=== PATIENT | male | born 1950 | race Caucasian/White ===

== ENCOUNTER → 2020-02-18 08:47 | Outpatient (CLI) | payer OTHER, SELFPAY ==
[2020-02-19 06:18] LABS: COVID19 Sendout Not Detected (Not Detect)
== END ==
PROVIDERS: PCP Physician Assistant Medical; Visit Provider Physician Assistant
DX: Z01.818 Encounter for other preprocedural examination (principal)
CPT/HCPCS: 87635

== ENCOUNTER 2020-02-21 13:25 | Observation (INO) | payer OTHER, SELFPAY ==
[2020-02-19 09:52] VITALS: BMI 28.1
[2020-02-20] VITALS (18 sets, daily range): BP systolic 70–156; BP diastolic 38–97; PULSE 67–88; RESP 8–91; TEMP 35.8–37.1; O2SAT 10–99; BMI 26.9
--- NOTE | 2020-02-20 | DI.RAD.S_ITS ---
PROCEDURE: XR LUMBAR SPINE 1V INDICATIONS: LAMINECTOMY TECHNIQUE: Single lateral view of the lumbar spine was acquired. COMPARISON: [facility], MR, MR LUMBAR SPINE WITHOUT CONTRAST, 03/12/2019, 9:37. FINDINGS: Bones: Intraoperative lateral view, showing metallic probe overlying the posterior elements at L3-L4 with upper tip of the probe parallel in position to the L3-4 disc space. Soft tissues: Overlying bowel gas pattern is normal. No suspicious soft tissue calcifications. IMPRESSION: Successful dorsal L3-4 disc level localization. Dictated by: Thiago Ramirez M.D. on 02/20/2020 at 12:52 Approved by: Thiago Ramirez M.D. on 02/20/2020 at 12:53
--- NOTE | 2020-02-20 07:21 | PM.PREOP ---
Pre-operative Note COVID-19 COVID-19 status: Negative Result date/Date tested (Pos, Neg/Pending): 02/18/20 Interval Note History & Physical reviewed/Exam performed by Physician: Yes Changes to H&P: No
[2020-02-20] MEDS: LACTATED RINGERS 1,000 ML 42 ML IV ×3 (07:30→10:07)
[2020-02-20] MEDS: CEFAZOLIN 2 GM/100 ML FROZ.PIGGY IV ×3 (07:48→23:33)
--- NOTE | 2020-02-20 08:24 | SUR.OPER ---
Prone on spine table, head in foam head support, padded chest and pelvic supports, gel pad at knees, lower legs supported by pillows; nipples, genitalia and toes free of pressure, arms secured on foam padded arm boards at <90 degrees abduction. Tape over blanket at thigh secured to table.
[2020-02-20] MEDS: THROMBIN (RECOMBINANT) 5,000 UNIT VIAL 5000 UNIT TOP (08:30)
[2020-02-20] MEDS: ACETAMINOPHEN IV 1,000 MG/100 ML VIAL 400 MG IV (08:30)
[2020-02-20] MEDS: VANCOMYCIN 1,000 MG VIAL 1000 MG TOP (08:31)
[2020-02-20] MEDS: SODIUM CHLORIDE 0.9% 1,000 ML, GENTAMICIN 80 MG IRR (08:32)
[2020-02-20] MEDS: BUPIVACAINE 0.25% (PF) 8 ML, fentaNYL 100 MCG INJ (08:32)
--- NOTE | 2020-02-20 08:34 | SUR.OPER ---
No flow in central air; start in OR room was delayed.
--- NOTE | 2020-02-20 09:40 | P.OP_ITS ---
Operative Date/Time/Diagnoses Date of procedure: 02/20/20 Time of procedure: 09:40 Pre-op diagnosis: Lumbar stenosis with radiculopathy Post-op diagnosis: same Procedure & Clinicians Procedure: L2-3, L3-4, L4-5 laminectomies Use of microscope Placement of epidural catheter Same procedure as scheduled: Yes Indications: [age] year old male with intractable pain from stenosis. They had failed conservative management and requested operative intervention. Risks and benefits of surgery were discussed and appropriate consents were obtained. Surgeon: Ryder Velázquez [employer] Furnace Operator: Bebeto Stein Anesthesia Type: General Operative Notes Findings: None Closure Type: primary Specimen(s): none sent Applied: catheter Estimated Blood Loss (mL): 30 Procedure in detail: Patient was brought to the operating room and intubated on the table. They were rolled over on the well-padded prone position on the Wilner table. A time-out was performed. Preoperative antibiotics were given. The back was prepped and draped in standard sterile fashion. Using fluoroscopy for localization, a 10 cm incision was made in the midline. We used Bovie to dissect through the lumbodorsal fascia and then subperiosteally dissect the paraspinal muscles off the right side. A marker was placed and x-ray was taken to confirm positioning. We then brought in the microscope. A right-sided laminectomy was performed at L4-5, then L3-4, then L2-3. We carefully depressed the dura and reached across the midline to decompress the opposite side. The neural foramen were cleared out. At the end, we could reach with the ball probe cephalad and caudally across the midline and to the foramen and everything was opened. The wound was irrigated. An epidural catheter was prepared with 8 mL of 0.25% Marcaine and 100 mcg of fentanyl. The dura was carefully depressed and the catheter was advanced 6 cm cephalad underneath remaining lamina without resistance. The fascia was then closed in layers. The epidural catheter was injected without complications. Vancomycin powder was placed in the wound. The superficial and the skin were closed. Sterile dressing was placed. Patient was rolled over extubated brought to recovery room with no complications. Complications: none Post-operative Condition: stable Disposition: PACU Plan for aftercare: Overnight admission probable discharge home tomorrow.
--- NOTE | 2020-02-20 10:32 | SUR.PHASEI ---
report called to Cynthia
--- NOTE | 2020-02-20 10:48 | SUR.PHASEI ---
Patient transferred to the floor with belongings bag, black bag, cane and glasses. Report given to Mary. IV saline locked. VS stable. Back dressing checked with RN. Patient moving all extremities independently.
[2020-02-20] MEDS: LACTATED RINGERS 1,000 ML 125 ML IV ×2 (11:38→20:02)
--- NOTE | 2020-02-20 12:52 | PC.NURSE ---
Patient, alert, oriented, denies pain, CMS+ to BLE. Tang patent, dressing to back intact. Patient tolerated lunch without nausea.
[2020-02-20] MEDS: HYDROCODONE/ACET 5/325 TABLET 2 TAB PO ×3 (13:08→22:57)
--- NOTE | 2020-02-20 14:52 | PT.IIE ---
Current Diagnoses Spinal stenosis, lumbar region with neurogenic claudication (02/20/20) Other intervertebral disc degeneration, lumbar region (02/20/20) Surgery Performed Operation Date: 02/20/20 07:45 Actual Procedures p L2-5 laminectomies - Ryder Velázquez MD Physical Therapy Inpatient Evaluation/Re-Eval M1 PT/OT-IP Prior Functional Status Start: 02/20/20 13:27 Freq: NEEDED Status: Active Protocol: Document 02/20/20 14:31 AW (Rec: 02/20/20 14:51 AW [email or web address]) Medical Review Prior Functional Status Medical History Reviewed Yes Communication WNL Mobility and Gait Pt is modified independent with use of SPC for ~2 years. He reports the cane helps with his balance. Activities of Daily Living and IADL's Independent Prior Functional Level (Other details) Pt reports one non-injurious fall in the past year. Social History Household Members none Living Arrangements House Number of Stairs To Enter/Railing? Pt will stay with his sister at discharge. Her home has level entrance to landing level. Pt must climb 7 stairs with left rail ascending to the main level including the kitchen and living room. From the landing, he must descend 7 stairs with no railing to the bedroom where he will be staying. Details below refer to sister' s home. Home Environment Standard Height Toilet,Walk in Shower Home Equipment Front Wheel Walker,Straight Cane,Grab Bars In Shower Employment Status Retired Additional Social History Comment Pt lives alone but plans to stay with his sister for several days at discharge. She and her will be able to assist as needed. He also has supportive friends to assist when he does return home. M2 PT-IP Current Condition Start: 02/20/20 13:27 Freq: NEEDED Status: Active Protocol: Document 02/20/20 14:31 AW (Rec: 02/20/20 14:51 AW [email or web address]) Physical Therapy Current Condition Current Condition Evaluation Date 02/20/20 Treatment Diagnosis s/p L2-3 L3-4 L4-5 laminectomies; difficulty in walking Onset Date 02/20/20 Precautions Lumbar Precautions Log Roll,No Twisting,Limit Bending,Lifting Restriction of 10 lbs,Gait Belt above Incisional Area Weight Bearing Status Weight Bearing Status Full Weight Bearing M3 PT-IP Subjective Start: 02/20/20 13:27 Freq: NEEDED Status: Active Protocol: Document 02/20/20 14:31 AW (Rec: 02/20/20 14:51 AW [email or web address]) Subjective Physical Therapy Visit Type Type Initial Evaluation Visit Start Time 13:52 Visit Stop Time 14:17 Total Visit Minutes 25 Physical Therapy Visit Comments Patient Comments Pt is alert and willing to participate with PT Patient Goals To discharge to his sister's house Therapy Pain Assessment Pain When Pain Assessed During Mobility Pain Present Pain Present Pain Reported Location lower back Intensity 5 Scale Used 3/10 at rest; 5/10 during bed mobility Pain Management Techniques Timing of Activity with Medications M4 PT-IP Mobility and Gait Start: 02/20/20 13:27 Freq: NEEDED Status: Active Protocol: Document 02/20/20 14:31 AW (Rec: 02/20/20 14:51 AW [email or web address]) PT-Bed Mobility Assessment Rolling Type of Rolling Log Rolling,Roll to Right Level of Assist Contact Guard Assistance,1 Person Assistance Supine to Sit Supine to Sit Minimal Assistance,1 Person Assistance Scooting Scooting to Edge of Bed Standby Assistance PT-Transfer Assessment Sit to and From Stand Sit to and from Stand Contact Guard Assistance,1 Person Assistance,Use of Upper Extremities Equipment Transfer Assistive Device Gait Belt,Front Wheeled Walker Orthotic/Prosthetic Devices or Brace: No Transfers Transfer Destination Chair Transfer Technique Stand Step Pivot Transfer Ability Level of Assist Contact Guard Assistance,1 Person Assistance,Use of Upper Extremities Comments Mobility Comments Pt sitting up in bed upon PT arrival. From flattened bed, he completed log roll to his right side CGA and sidelying to sit transition min A x 1. He was able to sit EOB with and without UE support. BP sitting was 132/76. He stood using FWW CGA and reported dizziness. He was able to shift weight and march in place. Pt step pivot transferred to the chair using FWW CGA. BP after transfer was 152/88. Pt was positioned in the chair with call light and all needs within reach. Pt verbalized agreement to use call light for all mobility needs. Gait Assessment Gait Gait Assistance Required: Contact Guard Assist Distance (Feet) 4 Assistive Devices Assistive Device Gait Belt,Front Wheeled Walker Gait Deviations General Gait Pattern Antalgic,Decreased Stride Length,Decreased Feet Clearance,Flexed Trunk Factors Limiting Gait Function Factors Limiting Gait Function Decreased Activity Tolerance, Decreased Strength,Pain,Poor Balance Comments Gait Comments See mobility comments Stair Climbing Assessment Comments Stair Climbing Comments Not assessed. PT-Balance Assessment Sitting Balance and Reactions Static Sitting Balance Ability Good Dynamic Sitting Balance Ability Good Standing Balance and Reactions Static Standing Balance Ability Good Dynamic Standing Balance Ability Good Device Used FWW M5 PT-IP Objective Assessments Start: 02/20/20 13:27 Freq: NEEDED Status: Active Protocol: Document 02/20/20 14:31 AW (Rec: 02/20/20 14:51 AW [email or web address]) Orientation Orientation/Cognition Level of Alertness Alert Orientation Name,Day of Week,Place, Situation Language Function Ability No Deficits Noted Safety Awareness Understands Safety Issues Memory Description No Deficits Noted Gross Range of Motion Lower Extremity ROM Assessment Within Functional Limits Strength Lower Extremity Strength Assessment Bilaterally Impaired Comments Strength Comments Grossly 4/5 except B knees 4-/ 5 Coordination Assessment Gross Coordination Gross Coordination WNL Sensation Assessment Sensation Gross Sensation Right LE Impaired,Left LE Impaired Comments Sensation Comments Pt reports chronic paresthesias of anterolateral thighs and medial shins. On evaluation, pt noted numbess in toes bilaterally. Muscle Tone Muscle Tone WNL Yes M6 PT-IP Treatment Start: 02/20/20 13:27 Freq: NEEDED Status: Active Protocol: Document 02/20/20 14:31 AW (Rec: 02/20/20 14:51 AW [email or web address]) Physical Therapy Treatment Education Education Provided Precautions,Weight Bearing Status,Post-Op Packet,Safety Other Treatments Other Treatment Performed Provided education on role of PT, plan of care, post-op precautions, and selection of appropriate assistive device M7 PT-IP Assessment and Plan Start: 02/20/20 13:27 Freq: NEEDED Status: Active Protocol: Document 02/20/20 14:31 AW (Rec: 02/20/20 14:51 AW [email or web address]) PT Summary Assessment and Plan Potential Rehabilitation Potential Good Status of Condition at Evaluation Evolving Summary Impairments Pain,Strength,Balance, Sensation,Bed Mobility, Transfers,Gait,Activity Tolerance Assessment Summary Law is a 69yo man seen for PT evaluation on POD0 following L2-3 L3-4 L4-5 laminectomies. At baseline, he is mod indpendent with use of SPC and fully independent with ADL's. On evaluation, pt reported dizziness with mobilty although SBP kelly from 132-152 . Pt required CGA to min assist with bed mobility and CGA for transfer. PT anticipates he will progress through plan of care and be safe to discharge to his sister's home with assist from her and her once medically cleared. Pt will need to clear stairs prior to discharge. Goals Bed Mobility Goal Independent Transfer Goal Standby Assistance,Cane Gait Goal Standby Assistance,Cane Gait Distance 200 Other Goals - up/down 7 stairs with L rail ascending SBA - up/down 7 stairs with SPC SBA Days to Meet Goals 2 Frequency of Treatment Frequency Of Treatment Twice a Day Treatment Plan Physical Therapy Treatment Plan Bed Mobility Training,Transfer Training,Gait Training, Therapeutic Exercise,Balance Retraining,Post Op Education, Discharge Planning,Hot or Cold Pack Other Recommendations and Next Treatment bed mobility; progress gait Focus distance; assess safety on stairs; sister available for CGT? Recommendations To Nursing Amount of Assist Needed 1 Person Assist Discharge Recommendations PT Discharge Recommendations Home with Assistance, Outpatient PT Transportation Needs at Discharge Private Vehicle
--- NOTE | 2020-02-20 15:30 | OT.IP.EVAL ---
Current Diagnoses Spinal stenosis, lumbar region with neurogenic claudication (02/20/20) Other intervertebral disc degeneration, lumbar region (02/20/20) Surgery Performed Operation Date: 02/20/20 07:45 Actual Procedures p L2-5 laminectomies - Ryder Velázquez MD Occupational Therapy Inpatient Evaluation/Re-Eval M1 PT/OT-IP Prior Functional Status Start: 02/20/20 16:09 Freq: NEEDED Status: Active Protocol: Document 02/20/20 16:09 [facility] (Rec: 02/20/20 16:28 [facility] [id number]) Medical Review Prior Functional Status Medical History Reviewed Yes Communication WNL Mobility and Gait Pt is modified independent with use of SPC for ~2 years. He reports the cane helps with his balance. Activities of Daily Living and IADL's Independent Prior Functional Level (Other details) Pt reports one non-injurious fall in the past year. Social History Household Members none Living Arrangements House Number of Floors (Floors) One Floor Number of Stairs To Enter/Railing? Pt now wanting to go to his home, details are for his house. 3 steps with left rail up and no stairs in the house, therefore single level house versus sister's house of multiple steps. Home Environment Standard Height Toilet,Tub/ Shower,Bidet Home Equipment Front Wheel Walker,Straight Cane,Grab Bars Near Toilet, Grab Bars In Shower Employment Status Retired Additional Social History Comment Pt lives alone but plans to stay with his sister for several days at discharge. She and her will be able to assist as needed. He also has supportive friends to assist when he does return home. Pt now thinking the set-up at his house would be better and now wanting to go home and sister to come and stay with him initially. M2 OT-IP Current Condition Start: 02/20/20 16:09 Freq: Status: Active Protocol: Document 02/20/20 16:09 [facility] (Rec: 02/20/20 16:28 [facility] [id number]) Occupational Therapy Current Condition Current Condition Evaluation Date 02/20/20 Treatment Diagnosis Lumbar stenosis with neurological claudication s/p L2-5 Laminectomy Diagnosis Onset Date 02/20/20 Post Operative Precautions Lumbar Precautions Log Roll,No Twisting,Limit Bending,Lifting Restriction of 10 lbs,Gait Belt above Incisional Area Weight Bearing Status Weight Bearing Status Weight Bear as Tolerated M3 OT- IP Subjective and Pain Start: 02/20/20 16:09 Freq: Status: Active Protocol: Document 02/20/20 16:09 [facility] (Rec: 02/20/20 16:28 [facility] [id number]) OT- Subjective Occupational Therapy Visit Type Type Initial Evaluation Visit Start Time 15:02 Visit Stop Time 15:30 Total Visit Minutes 28 Occupational Therapy Visit Comments Patient Comments Pt agreed to work with OT and already sitting up in the recliner when OT came. Patient/Caregiver Goals TO go home. OT Pain Assessment Pain When Pain Assessed During Mobility Pain Present Pain Present Pain Reported Location lower back Intensity 2 Scale Used Numeric (1 - 10) M4 OT- IP ADL's Start: 02/20/20 16:09 Freq: Status: Active Protocol: Document 02/20/20 16:09 [facility] (Rec: 02/20/20 16:28 [facility] [id number]) OT [id number] Comments OT Self-Feeding Comments Not at meal time. OT ADL-Grooming General Evaluation Grooming Ability Standby Assistance Comments OT Grooming Comments SBA while standing with FWW at the sink. OT ADL-Oral Care General Eval Oral Care Ability Independent Comments Oral Care Comments VC to bend at his hips or spit into a cup. Pt has a tendency to round his back while spitting into the sink. OT ADL-Dressing General Eval Lower Body Dressing Ability Standby Assistance Areas Needing Assistance Socks Comments OT Dressing Comments Pt able to comfortably cross his legs over to johnny/doff socks but states usually does not wear sock at home. Pt able to slip on his slippers on his own. Educated to use welfare specialist to assist for LB dressing needs, pt has a welfare specialist at home. OT ADL-Toileting Comments OT Toileting Comments Pt has a bidet at home. VC to reach back to toilet and grab bar when coming to sit or stand. Pt educated to walk over the toilet with FWW for urination needs. OT ADL-Bathing Comments OT Bathing Comments NOt at this time. Suggested may want to consider a shower chair for home use. Pt states sister able to assist him if needed. M5 OT- IP IADL's Start: 02/20/20 16:09 Freq: Status: Active Protocol: Document 02/20/20 16:09 [facility] (Rec: 02/20/20 16:28 [facility] [id number]) OT-Instrumental Activities of Daily Living Home Safety Awareness Awareness of Need for Assistance at Home Good Awareness Ability to Problem Solve Emergency Able to Problem Solve Situations Home Safety Comments Pt a bit groggy and initially pt's sister to assist for IADL needs and double check for meds and finances. M6 OT- IP Functional Cognition Start: 02/20/20 16:09 Freq: Status: Active Protocol: Document 02/20/20 16:09 [facility] (Rec: 02/20/20 16:28 [facility] [id number]) Cognitive Factors Limiting Selfcare Function Cognitive Ability Level of Alertness Alert Patient Orientation Name,Place,Situation Attention Span Ability Capable of Focused Attention, Capable of Sustained Attention Ability to Follow Commands Able to Follow One Step Commands Memory Description Short Term Impaired Safety Awareness Decreased Ability to Apply Precautions,Underestimates Need for Assistance Problem Solving Ability Needs Assist to Identify Solutions Cognitive Comments Cognitive Assessment Comments Pt initially not able to recall back precautions and needing vc and at the end of the session able to recall 3/3 . Pt needing cues for safety to push up with his arms on surfaces when coming to stand and also hinge at his hips as well. Pt has a tendency to grab the FWW to come to stand and when sitting down. OT- Vision and Hearing OT- Hearing Assessment OT- Hearing Assessment WFL OT- Vision Assessment Visual Acuity WFL M7 OT- IP Mobility and Balance Start: 02/20/20 16:09 Freq: Status: Active Protocol: Document 02/20/20 16:09 [facility] (Rec: 02/20/20 16:28 [facility] [id number]) OT-Transfer Assessment Sit to and From Stand Sit to and from Stand Standby Assistance Transfers Transfer Ability Standby Assistance Technique Transfer Destination Chair,Toilet Transfer Technique Stand Step Pivot Devices Transfer Assistive Devices Gait Belt,Front Wheeled Walker Comments Mobility Comments SBA with FWW. OT- Balance Assessment Sitting Balance and Reactions Static Sitting Balance Ability Normal Dynamic Sitting Balance Ability Good Standing Balance and Reactions Static Standing Balance Ability Good M8 OT- IP Objective Assessments Start: 02/20/20 16:09 Freq: Status: Active Protocol: Document 02/20/20 16:09 [facility] (Rec: 02/20/20 16:28 [facility] [id number]) OT Gross Range of Motion Upper Extremity Range of Motion Assessment Within Functional Limits OT Strength Upper Extremity Strength Assessment Within Functional Limits OT-Muscle Tone Assessment Muscle Tone WNL Yes M9 OT- IP Assessment and Plan Start: 02/20/20 16:09 Freq: Status: Active Protocol: Document 02/20/20 16:09 [facility] (Rec: 02/20/20 16:28 [facility] [id number]) OT Summary Assessment and Plan Potential Rehabilitation Potential Excellent Analytic Complexity at Evaluation Low Summary OT Impairments Pain,Balance,Functional Cognition,Functional Mobility, Dressing,Toileting,Bathing, Toilet Transfers,Shower Transfers Progress Towards Goals Progressing Toward Goals Assessment Summary Pt low complexity and main barriers are steps, decreased ability to incorporate back precautions, and now needing use of FWW for mobility needs . OT to continue to educated pt on equipment needs, incorporation of back precautions for mobility and ADL needs. When medically stable pt to go home with sister to assist. Goals Grooming Goal Independent Dressing Goal Independent Toileting Goal Independent Bathing Goal Standby Assistance Toilet Transfer Goal Independent Shower Transfer Goal Independent Patient/Caregiver Education Goal Demonstrate Post-Op Precautions,Caregiver Independent Assisting Patient Days to Meet Goals 5 Frequency of Treatment Frequency Of Treatment Once a Day Treatment Plan OT Treatment Plan ADL Training,Functional Cognition Training,Functional Mobility,Patient/Family Education,Discharge Planning Other Treatment Recommendations and Next Shower, caregiver training. Treatment Focus Discharge Recommendations OT Discharge Recommendations Home with Assistance Transportation Needs at Discharge Private Vehicle
--- NOTE | 2020-02-20 18:35 | PC.NURSE ---
Addendum entered by Kellie Shea R.N. 02/20/20 22:43: Pt reports symptoms of flushing, itchiness,sweaty, hot from Niacin, administered at 2039. Pt appears red in face/neck/arms; SBP 112; Pt usually takes Non-Flush Niacin and will need this order changed in morning. Addendum entered by Kellie Shea R.N. 02/20/20 21:16: @ 2100 Pt sitting up in chair; mild/moderate pain PO pain meds Original Note: Pt sat up in chair for over an hour; ambulated in hallway with sba and fww; c/m/s to BLLEs present; Drsg to lower back saturated and changed with gauze and abd pad, secured with tape; IV fluids/abx infusing; Tang draining to gravity clear, yellow; pain mild, denies nausea, tolerating general diet; call light within reach
[2020-02-20] MEDS: NIACIN 500 MG TABLET PO (20:39)
[2020-02-20] MEDS: SIMVASTATIN 20 MG TABLET PO (20:39)
[2020-02-20] MEDS: SODIUM CHLORIDE 0.9% FLUSH 10 ML IV (20:40)
[2020-02-20] MEDS: DOCUSATE 100 MG CAPSULE PO (20:43)
[2020-02-20] MEDS: TRAZODONE 50 MG TABLET PO (22:57)
[2020-02-20] MEDS: hydrOXYzine pamoate 25 MG CAPSULE PO (23:00)
[2020-02-21 00:58] VITALS: O2SAT 95
[2020-02-21 06:00] LABS: Hematocrit 34.2 % (41-53); Hemoglobin 11.9 g/dL (13.5-17.5)
[2020-02-21] MEDS: KETOROLAC 30 MG/ML VIAL IV (06:00)
--- NOTE | 2020-02-21 07:48 | PM.PNPO.1 ---
Subjective Subjective Date Patient Seen: 02/21/20 Time Patient Seen: 07:48 Interval history: He is doing well. Fairly comfortable at rest but about a 6/10 when getting up and moving around. He had soaked through his dressing yesterday and this had to be changed. Exam Vital Signs (past 8 hours): - 02/21/20 00:58 Pulse Oximetry 95 Oxygen Delivery Method Room Air Oxygen Flow Rate 0 Const Orientation: alert and oriented x3 Back/Spine/Pelvis Other: Moderate drainage on the bottom have the dressing. 5/5 motor both lower extremities. Objective Labs Result Diagrams: 02/21/20 05:47 Labs: Laboratory Results - last 24 hr 02/21/20 05:47 Hgb 11.9 L Hct 34.2 L Assessment & Plan Post-op Postoperative Procedures: Procedures Operation Date: 02/20/20 07:45 Actual Procedures Side Surgeon p L2-5 laminectomies Ryder Velázquez MD he is doing well. Continue to mobilize today with physical therapy. Continue to work with pain control. We will changes dressing again today. Anticipate probable discharge home tomorrow if he has good pain control and is mobile and safe as well as having the drainage continue to dry up. Quality VTE Deep Vein Thrombosis/Pulmonary Embolism Present on Admission: No
[2020-02-21] MEDS: DOCUSATE 100 MG CAPSULE PO ×2 (08:09→20:39)
[2020-02-21] MEDS: AMLODIPINE 5 MG TABLET PO (08:09)
[2020-02-21] MEDS: LOSARTAN 25 MG TABLET PO (08:09)
[2020-02-21] MEDS: TAMSULOSIN 0.4 MG CAPSULE PO (08:10)
[2020-02-21] MEDS: PANTOPRAZOLE 20 MG TABLET PO (08:10)
[2020-02-21] MEDS: BACLOFEN 10 MG TABLET PO (08:10)
[2020-02-21] MEDS: GABAPENTIN 300 MG CAPSULE PO (08:10)
[2020-02-21] MEDS: HYDROCODONE/ACET 5/325 TABLET 2 TAB PO ×2 (08:11→20:44)
[2020-02-21 08:25] VITALS: BP 149/78; PULSE 71; RESP 18; TEMP 36.8; O2SAT 99
--- NOTE | 2020-02-21 09:21 | CM.DANOTE ---
Patient is a 69 year old male who was admitted on 02/20/20 for planned LAMI. Pt has [facility] for insurance and his PCP is Dr. Brigid Hsu. EMR was reviewed. Per Ortho MD, pt tolerated procedure well and may be stable for d/c home tomorrow if stable. Per PT/OT, now recommending safe d/c to own home as it is already better set up with grab bars and no stairs with sister and neighbor to assist and outpt PT. SW met bedside with pt and explained role and pt confirms that he lives at home alone on [address] and is very active and independent at baseline. Pt denies any hx of HH or SNF and states he completed his Will and possibly DPOA pwk many years ago but realizes that he needs to update his pwk. Pt states he originally was planning to stay at his sister's house for assist but she has many stairs and pt has progressed enough to safely d/c home and MD does not feel he needs 24/7 at discharge. Pt confirms that his sister is available for CG training and assist at d/c and neighbor will grocery shop and assist when needed. Pt preference is home at d/c and does not anticipate any needs. Plan: SW to follow to confirm pt safe for d/c home with sister and friend assist and outpt PT when stable. LAKESHA Edwards Discharge Planning/Care Management CM Discharge Assessment Start: 02/21/20 09:20 Freq: Status: Active Protocol: Document 02/21/20 09:20 BF (Rec: 02/21/20 09:21 BF [id number]) Discharge Planning Assessment Assigned General Office Dispatcher LAKESHA Ruby DPOA/Assigned Designee Name none Advance Directives? No Advance Directives on File No History Provided By Patient,Medical Record Has Patient been admitted in last 30 No days? Prior Living Arrangements House Household Members none Type of transporation used prior to Drives own vehicle admit Independent with ADL's Yes Is patient alert and oriented? Yes Caregiver for Another No Community Services used prior to Physical Therapy admission: DME Already Rented / Owned Bath Bench Patient/Family Preference OP PT Therapy Barriers to Discharge No Discharge Plan Home Community Services Physical Therapy Transportation Arrangement Sister available to provide transport and assist at d/c Referrals Initiated None needed Whiteboard Updated in Patient Room with Yes name and ext. # of General Office Dispatcher Review Status In Process Please Provide Date Initial DC 02/21/20 Assessment Was Performed Next Review Type Continued Stay Review Pre-Anesthesia Assessment Start: 02/19/20 09:51 Freq: Status: Complete Protocol: Document 02/19/20 09:52 CAB (Rec: 02/19/20 09:55 CAB [id number]) Pre-Anesthesia Assessment PAC Comment Negative COVID screening only available medical record identified. No other labs/EKG or surgeon H&P available, PAC not completed. Comment COVID-19 @ [facility] 02/18/20-not detected Primary Care Provider Brigid Hsu Seen Specialist in Last 12 Months Yes Specialist Seen Orthopedist Primary Language Turkmen Pearl Technician Required No Height 170.18 cm Weight 81.647 kg Body Mass Index (BMI) 28.1 Have you had any close contact with Unknown someone diagnosed with COVID-19?
--- NOTE | 2020-02-21 09:26 | PT.IPTN ---
Current Diagnoses Spinal stenosis, lumbar region with neurogenic claudication (02/21/20) Other intervertebral disc degeneration, lumbar region (02/21/20) Surgery Performed Operation Date: 02/20/20 07:45 Actual Procedures p L2-5 laminectomies - Ryder Velázquez MD Physical Therapy Treatment Note M2 PT-IP Current Condition Start: 02/20/20 13:27 Freq: NEEDED Status: Active Protocol: Document 02/20/20 14:31 AW (Rec: 02/20/20 14:51 AW [email or web address]) Physical Therapy Current Condition Current Condition Evaluation Date 02/20/20 Treatment Diagnosis s/p L2-3 L3-4 L4-5 laminectomies; difficulty in walking Onset Date 02/20/20 Precautions Lumbar Precautions Log Roll,No Twisting,Limit Bending,Lifting Restriction of 10 lbs,Gait Belt above Incisional Area Weight Bearing Status Weight Bearing Status Full Weight Bearing M3 PT-IP Subjective Start: 02/20/20 13:27 Freq: NEEDED Status: Active Protocol: Document 02/21/20 09:00 SP (Rec: 02/21/20 15:55 SP [id number]) Subjective Physical Therapy Visit Type Type Treatment Note Visit Start Time 09:00 Visit Stop Time 09:26 Total Visit Minutes 26 Number of SHIPPING CLERK CRATING Visits 1 Physical Therapy Visit Comments Patient Comments Pt willing to work with PT. Patient Goals To discharge to his home, 4 stairs to enter L HR with sister assisting him at his home. Therapy Pain Assessment Pain When Pain Assessed During Mobility Pain Present Pain Present Pain Reported Location lower back Intensity 3 Pain Management Techniques Re-positioning,Timing of Activity with Medications M4 PT-IP Mobility and Gait Start: 02/20/20 13:27 Freq: NEEDED Status: Active Protocol: Document 02/21/20 09:00 SP (Rec: 02/21/20 15:55 SP [id number]) PT-Bed Mobility Assessment Rolling Type of Rolling Log Rolling,Bilateral Level of Assist Standby Assistance Supine to Sit Supine to Sit Standby Assistance Sit to Supine Sit to Supine Standby Assistance Scooting Scooting to Edge of Bed Standby Assistance PT-Transfer Assessment Sit to and From Stand Sit to and from Stand Standby Assistance,Use of Upper Extremities Equipment Transfer Assistive Device Gait Belt,Straight Cane Orthotic/Prosthetic Devices or Brace: No Transfers Transfer Destination Chair Transfer Technique pt ambulated using SPC Transfer Ability Level of Assist Standby Assistance,Use of Upper Extremities Comments Mobility Comments Pt was sitting up in chair when arrived. Sit to stand SBA using BUE for self support, good recall and spinal alignment demonstration of no twisting. Pt ambulated further distance into hallway approx 424 ft using SPC close SBA due to wt shift deviations but self recovery cued for slower pacing, also completed 6 stair mgt ascend/descend using L HR and SPC in RUE step to gait SBA, stable. Pt completed supine<> sitting with good log roll technique with occasional cuing responses knees/shld together to patient questions and asking for proper form feedback. Pt was up in chair with call light and all needs in reach prior to leaving. Pt would benefit from further acute treatment for balance improvement during gait with SPC secondary to occasional wt shift deviations self recovery during gait in hallway and WBOS. At this time would recommend home with assist using SPC and out patient therapy to improve strength, balance to work toward more complex dynamic activities use to do prior, classes able to get on/off floor, gardening. Gait Assessment Gait Gait Assistance Required: Contact Guard Assist Distance (Feet) 424 Able to Maintain Weight Bearing Status Yes During Gait Assistive Devices Assistive Device Gait Belt,Straight Cane Orthotic/Prosthetic Devices or Brace: No Gait Deviations General Gait Pattern Antalgic,Decreased Stride Length,Decreased Feet Clearance,Flexed Trunk,Wide Based Gait Factors Limiting Gait Function Factors Limiting Gait Function Decreased Activity Tolerance, Decreased Strength,Pain,Poor Balance Comments Gait Comments See mobility comments. Stair Climbing Assessment Evaluation Level of Assist On Stairs Contact Guard Assistance Devices Stair Climbing Assistive Devices Straight Cane,Left Railing Technique/Endurance Stair Climbing Direction Ascend and Descend Stair Climbing Technique Step Over Step Number of Steps Climbed 3 Stair Climbing Set # Repetitions (reps) 2 Comments Stair Climbing Comments See mobility comments PT-Balance Assessment Sitting Balance and Reactions Static Sitting Balance Ability Normal Dynamic Sitting Balance Ability Normal Standing Balance and Reactions Static Standing Balance Ability Good Dynamic Standing Balance Ability Fair Device Used FWW M5 PT-IP Objective Assessments Start: 02/20/20 13:27 Freq: NEEDED Status: Active Protocol: Document 02/20/20 14:31 AW (Rec: 02/20/20 14:51 AW [email or web address]) Orientation Orientation/Cognition Level of Alertness Alert Orientation Name,Day of Week,Place, Situation Language Function Ability No Deficits Noted Safety Awareness Understands Safety Issues Memory Description No Deficits Noted Gross Range of Motion Lower Extremity ROM Assessment Within Functional Limits Strength Lower Extremity Strength Assessment Bilaterally Impaired Comments Strength Comments Grossly 4/5 except B knees 4-/ 5 Coordination Assessment Gross Coordination Gross Coordination WNL Sensation Assessment Sensation Gross Sensation Right LE Impaired,Left LE Impaired Comments Sensation Comments Pt reports chronic paresthesias of anterolateral thighs and medial shins. On evaluation, pt noted numbess in toes bilaterally. Muscle Tone Muscle Tone WNL Yes M6 PT-IP Treatment Start: 02/20/20 13:27 Freq: NEEDED Status: Active Protocol: Document 02/21/20 09:00 SP (Rec: 02/21/20 15:55 SP [id number]) Physical Therapy Treatment Education Education Provided Precautions,Safety Other Treatments Other Treatment Performed Recalled post op precautions. M7 PT-IP Assessment and Plan Start: 02/20/20 13:27 Freq: NEEDED Status: Active Protocol: Document 02/21/20 09:00 SP (Rec: 02/21/20 15:55 SP [id number]) PT Summary Assessment and Plan Potential Rehabilitation Potential Good Status of Condition at Evaluation Evolving Summary Impairments Pain,Strength,Balance, Sensation,Bed Mobility, Transfers,Gait,Activity Tolerance Assessment Summary Pt requires sBA for all mobility, SPC during gait, little unsteady with self recovery requiring close SBA and cuing for slower pacing. PT anticipates he will progress through plan of care and be safe to discharge to his home with assist from his sister when medically cleared. Pt has cleared 4 stair mgt to assimulate home enterance. Pt would benefit from further acute PT to progress gait with SPC and balance. Recommending out patient therapy upon discharge with home assist of sister when medically stable. Goals Bed Mobility Goal Independent Transfer Goal Standby Assistance,Cane Gait Goal Standby Assistance,Cane Gait Distance 200 Other Goals - up/down 7 stairs with L rail ascending SBA - up/down 7 stairs with SPC SBA Days to Meet Goals 2 Frequency of Treatment Frequency Of Treatment Twice a Day Treatment Plan Physical Therapy Treatment Plan Bed Mobility Training,Transfer Training,Gait Training, Therapeutic Exercise,Balance Retraining,Post Op Education, Discharge Planning,Hot or Cold Pack Other Recommendations and Next Treatment bed mobility log roll; Focus progress gait distance use of SPC; dynamic balance activities with/without use of SPC. Recommendations To Nursing Amount of Assist Needed 1 Person Assist Discharge Recommendations PT Discharge Recommendations Home with Assistance, Outpatient PT Transportation Needs at Discharge Private Vehicle
[2020-02-21] MEDS: SODIUM CHLORIDE 0.9% FLUSH 10 ML IV ×2 (11:29→20:40)
[2020-02-21 11:48] VITALS: BP 128/85; PULSE 75; RESP 18; TEMP 37.1; O2SAT 99
--- NOTE | 2020-02-21 12:07 | PC.NURSE ---
Addendum entered by Leticia Hoffmann R.N. 02/21/20 14:30: Pt voided approx 200 mls at 1425. [place] 1 tab prn given at 1430 for lower back aching. Pt wanted to try 1 tab this time. Addendum entered by Leticia Hoffmann R.N. 02/21/20 14:22: Pt has not voided yet and no urge to void. MACHINE SCALLOP CUTTER bladder scanned pt at 1415 for approx 289 mls. Will monitor. Addendum entered by Leticia Hoffmann R.N. 02/21/20 13:01: lower back dressing removed at 1250 without difficulty, moderate amount of sero-sang drainage. Incision well approximated with sutures intact. Area cleansed with NS and pat dry with gauze. 2 4X4 gauze applied under one coversite dressing. Pt tolerated well, now settled into recliner chair. Original Note: Day Shift- Pt A&OX4, in good spirits this AM, able to make needs known using call light. Rated lower back pain 4/10 this AM, tolerable. Pain management plan discussed. PRN [place] given at 0810 in anticipation of OOB movement with PT this AM. After pt did ambulate with PT around 0920, upon reassessment, pt stated lower back discomfort was 2/10. Urinary catheter removed at 0745 without difficulty, urinal within reach and pt instructed on the expectations after urinary catheter removal. Pt requesting shower, OT will help pt this afternoon session and dressing to be done prior to shower. No other voiced concerns. Pt ambulating in halls with MACHINE SCALLOP CUTTER as well and sitting in recliner chair most of shift.
[2020-02-21] MEDS: HYDROCODONE/ACET 5/325 TABLET 1 TAB PO ×2 (14:28→16:21)
--- NOTE | 2020-02-21 14:49 | PT.IPTN ---
Current Diagnoses Spinal stenosis, lumbar region with neurogenic claudication (02/21/20) Other intervertebral disc degeneration, lumbar region (02/21/20) Surgery Performed Operation Date: 02/20/20 07:45 Actual Procedures p L2-5 laminectomies - Ryder Velázquez MD Physical Therapy Treatment Note M2 PT-IP Current Condition Start: 02/20/20 13:27 Freq: NEEDED Status: Active Protocol: Document 02/20/20 14:31 AW (Rec: 02/20/20 14:51 AW [email or web address]) Physical Therapy Current Condition Current Condition Evaluation Date 02/20/20 Treatment Diagnosis s/p L2-3 L3-4 L4-5 laminectomies; difficulty in walking Onset Date 02/20/20 Precautions Lumbar Precautions Log Roll,No Twisting,Limit Bending,Lifting Restriction of 10 lbs,Gait Belt above Incisional Area Weight Bearing Status Weight Bearing Status Full Weight Bearing M3 PT-IP Subjective Start: 02/20/20 13:27 Freq: NEEDED Status: Active Protocol: Document 02/21/20 14:32 SP (Rec: 02/21/20 16:09 SP [id number]) Subjective Physical Therapy Visit Type Type Treatment Note Visit Start Time 14:32 Visit Stop Time 14:49 Total Visit Minutes 17 Number of CUSTOMER CARE VOICE CONSULTANT Visits 2 Physical Therapy Visit Comments Patient Comments Pt willing to work with therapy. Patient Goals discharge to his home with sister for assist. Therapy Pain Assessment Pain Present Pain Present Denied Pain M4 PT-IP Mobility and Gait Start: 02/20/20 13:27 Freq: NEEDED Status: Active Protocol: Document 02/21/20 14:32 SP (Rec: 02/21/20 16:09 SP [id number]) PT-Transfer Assessment Sit to and From Stand Sit to and from Stand Standby Assistance,Use of Upper Extremities Equipment Transfer Assistive Device Gait Belt,Straight Cane Orthotic/Prosthetic Devices or Brace: No Transfers Transfer Destination Chair Transfer Technique Stand Step Pivot Transfer Ability Level of Assist Standby Assistance Comments Mobility Comments Pt was sitting up in chair when arrived. Sit to stand SBA , ambulated into hallway usuing SPC with improvement in pacing little slower, not as wide [id number]. Completed ascend/ descend 6 stairs L HR and SPC RUE step over step patterning. Pt wanting to walk a couple laps around nursing station again, even though did earler with PT and nursing staff. Pt is making improvement in endurance and confidence use of SPC. CUSTOMER CARE VOICE CONSULTANT challenged patient during gait with head turns R /L and vertical with noted slower pacing but able to continue forward movement, side and back stepping approx 20 ft each direction with no LOB just slower pacing and cuing for normal size steps for safety and balance recovery, stable. Pt ambulated approx 424 ft SBA provided due to patient stated still doesn't feel his balance is back to normal using SPC during gait. Pt was seated in chair with call light and all needs in reach before left. CUSTOMER CARE VOICE CONSULTANT discussed with patient recommending outpatient therapy upon DC due to would benefit from further strengthening and balance trng to improve safe functional mobility with patient's verbal agreeement but that didn't want to go back to the same practice did prior. Gait Assessment Gait Gait Assistance Required: Standby Assistance Distance (Feet) 424 Able to Maintain Weight Bearing Status Yes During Gait Assistive Devices Assistive Device Gait Belt,Straight Cane Orthotic/Prosthetic Devices or Brace: No Gait Deviations General Gait Pattern Antalgic,Wide Based Gait Factors Limiting Gait Function Factors Limiting Gait Function Decreased Activity Tolerance, Decreased Strength,Poor Balance Comments Gait Comments See mobility comments. Stair Climbing Assessment Evaluation Level of Assist On Stairs Standby Assistance Devices Stair Climbing Assistive Devices Straight Cane,Left Railing Technique/Endurance Stair Climbing Direction Ascend and Descend Stair Climbing Technique Step Over Step Number of Steps Climbed 3 Stair Climbing Set # Repetitions (reps) 2 Comments Stair Climbing Comments See mobility comments PT-Balance Assessment Sitting Balance and Reactions Static Sitting Balance Ability Normal Dynamic Sitting Balance Ability Normal Standing Balance and Reactions Static Standing Balance Ability Good Dynamic Standing Balance Ability Fair Device Used FWW Functional Assessments Other Functional Tests Performed Dynamic gait using SPC including head turns, forward marching, CGA for safety, unstead, slow paced but self recovery. M5 PT-IP Objective Assessments Start: 02/20/20 13:27 Freq: NEEDED Status: Active Protocol: Document 02/20/20 14:31 AW (Rec: 02/20/20 14:51 AW [email or web address]) Orientation Orientation/Cognition Level of Alertness Alert Orientation Name,Day of Week,Place, Situation Language Function Ability No Deficits Noted Safety Awareness Understands Safety Issues Memory Description No Deficits Noted Gross Range of Motion Lower Extremity ROM Assessment Within Functional Limits Strength Lower Extremity Strength Assessment Bilaterally Impaired Comments Strength Comments Grossly 4/5 except B knees 4-/ 5 Coordination Assessment Gross Coordination Gross Coordination WNL Sensation Assessment Sensation Gross Sensation Right LE Impaired,Left LE Impaired Comments Sensation Comments Pt reports chronic paresthesias of anterolateral thighs and medial shins. On evaluation, pt noted numbess in toes bilaterally. Muscle Tone Muscle Tone WNL Yes M6 PT-IP Treatment Start: 02/20/20 13:27 Freq: NEEDED Status: Active Protocol: Document 02/21/20 14:32 SP (Rec: 02/21/20 16:09 SP [id number]) Physical Therapy Treatment Education Education Provided Precautions,Safety Other Treatments Other Treatment Performed Recalled all post op precautions. M7 PT-IP Assessment and Plan Start: 02/20/20 13:27 Freq: NEEDED Status: Active Protocol: Document 02/21/20 14:32 SP (Rec: 02/21/20 16:09 SP [id number]) PT Summary Assessment and Plan Potential Rehabilitation Potential Good Status of Condition at Evaluation Evolving Summary Impairments Pain,Strength,Balance, Sensation,Bed Mobility, Transfers,Gait,Activity Tolerance Assessment Summary See mobility comments. Goals Bed Mobility Goal Independent Transfer Goal Standby Assistance,Cane Gait Goal Standby Assistance,Cane Gait Distance 200 Other Goals - up/down 7 stairs with L rail ascending SBA - up/down 7 stairs with SPC SBA Days to Meet Goals 2 Frequency of Treatment Frequency Of Treatment Twice a Day Treatment Plan Physical Therapy Treatment Plan Bed Mobility Training,Transfer Training,Gait Training, Therapeutic Exercise,Balance Retraining,Post Op Education, Discharge Planning,Hot or Cold Pack Other Recommendations and Next Treatment progress gait distance use of Focus SPC; dynamic balance activities with/without use of SPC. Recommendations To Nursing Amount of Assist Needed Standby Assistance Discharge Recommendations PT Discharge Recommendations Home with Assistance, Outpatient PT Transportation Needs at Discharge Private Vehicle
[2020-02-21 15:21] VITALS: BP 137/75; PULSE 77; RESP 18; TEMP 37.1; O2SAT 99
--- NOTE | 2020-02-21 15:46 | OT.IP.TRT ---
Current Diagnoses Spinal stenosis, lumbar region with neurogenic claudication (02/21/20) Other intervertebral disc degeneration, lumbar region (02/21/20) Surgery Performed Operation Date: 02/20/20 07:45 Actual Procedures p L2-5 laminectomies - Ryder Velázquez MD Occupational Therapy Treatment Note M2 OT-IP Current Condition Start: 02/20/20 16:09 Freq: Status: Active Protocol: Document 02/20/20 16:09 [facility] (Rec: 02/20/20 16:28 [facility] [id number]) Occupational Therapy Current Condition Current Condition Evaluation Date 02/20/20 Treatment Diagnosis Lumbar stenosis with neurological claudication s/p L2-5 Laminectomy Diagnosis Onset Date 02/20/20 Post Operative Precautions Lumbar Precautions Log Roll,No Twisting,Limit Bending,Lifting Restriction of 10 lbs,Gait Belt above Incisional Area Weight Bearing Status Weight Bearing Status Weight Bear as Tolerated M3 OT- IP Subjective and Pain Start: 02/20/20 16:09 Freq: Status: Active Protocol: Document 02/21/20 15:36 [facility] (Rec: 02/21/20 15:46 [facility] [id number]) OT- Subjective Occupational Therapy Visit Type Type Treatment Note Visit Start Time 14:50 Visit Stop Time 15:14 Total Visit Minutes 24 Occupational Therapy Visit Comments Patient Comments Pt agreed to shower. Patient/Caregiver Goals TO go home. OT Pain Assessment Pain When Pain Assessed During Mobility Pain Present Pain Present Denied Pain M4 OT- IP ADL's Start: 02/20/20 16:09 Freq: Status: Active Protocol: Document 02/21/20 15:36 [facility] (Rec: 02/21/20 15:46 [facility] [id number]) OT ADL-Dressing General Eval Upper Body Dressing Ability Independent Lower Body Dressing Ability Standby Assistance Areas Needing Assistance Underpants/Brief Comments OT Dressing Comments Educated pt on sock aid as having trouble to johnny left sock on. In addition educated pt best to sit for LB dressing at this time instead of standing for his safety and now slightly decreased dynamic balance. OT ADL-Bathing General Evaluation Bathing Ability Standby Assistance Devices Bathing Equipment Grab Bars Comments OT Bathing Comments Pt able to stand for the whole shower with use of grab bars. Pt able to hold to grab bar and lean on the wall in order to stand on one foot to wash his feet, one at a time. Pt states feels safe and does not think he needs a shower stool at this time. M6 OT- IP Functional Cognition Start: 02/20/20 16:09 Freq: Status: Active Protocol: Document 02/21/20 15:36 [facility] (Rec: 02/21/20 15:46 [facility] [id number]) Cognitive Factors Limiting Selfcare Function Cognitive Ability Level of Alertness Alert Patient Orientation Name,Place,Situation Attention Span Ability Capable of Focused Attention, Capable of Sustained Attention Ability to Follow Commands Able to Follow Multi-Step Commands Memory Description No Deficits Noted Safety Awareness Decreased Ability to Apply Precautions Cognitive Comments Cognitive Assessment Comments Pt appears at baseline however a bit impulsive still and needing reminders to slow down and remember to especially incorporate the back precaution of no twisting. Suggested for pt to post the back precaution signs up at his house, especially right next to the bed to help remind him. M7 OT- IP Mobility and Balance Start: 02/20/20 16:09 Freq: Status: Active Protocol: Document 02/21/20 15:36 [facility] (Rec: 02/21/20 15:46 [facility] [id number]) OT-Transfer Assessment Sit to and From Stand Sit to and from Stand Standby Assistance Transfers Transfer Ability Standby Assistance Technique Transfer Destination Chair,Shower Stall,Toilet Transfer Technique Stand Step Pivot Devices Transfer Assistive Devices Gait Belt,Straight Cane Comments Mobility Comments SBA with cane. Use of grab bars to help step into the shower. OT- Balance Assessment Sitting Balance and Reactions Static Sitting Balance Ability Normal Dynamic Sitting Balance Ability Normal Standing Balance and Reactions Static Standing Balance Ability Good Dynamic Standing Balance Ability Fair M8 OT- IP Objective Assessments Start: 02/20/20 16:09 Freq: Status: Active Protocol: Document 02/20/20 16:09 [facility] (Rec: 02/20/20 16:28 [facility] [id number]) OT Gross Range of Motion Upper Extremity Range of Motion Assessment Within Functional Limits OT Strength Upper Extremity Strength Assessment Within Functional Limits OT-Muscle Tone Assessment Muscle Tone WNL Yes M9 OT- IP Assessment and Plan Start: 02/20/20 16:09 Freq: Status: Active Protocol: Document 02/21/20 15:36 [facility] (Rec: 02/21/20 15:46 [facility] [id number]) OT Summary Assessment and Plan Potential Rehabilitation Potential Excellent Analytic Complexity at Evaluation Low Summary OT Impairments Balance,Functional Cognition, Functional Mobility Progress Towards Goals Progressing Toward Goals Assessment Summary Pt now looking to go home. Pt doing well and now able to use SPC to walk and for some short distance no device. Pt' s main barrier are to remember to slow, and incorporate his back precautions for all ADL, IADL, and mobility needs. Spoke on getting a mirror so her can look at his back or have someone daily look at his bandage for him. Goals Grooming Goal Independent Dressing Goal Independent Toileting Goal Independent Bathing Goal Independent Toilet Transfer Goal Independent Shower Transfer Goal Independent Patient/Caregiver Education Goal Demonstrate Post-Op Precautions,Caregiver Independent Assisting Patient Days to Meet Goals 2 Frequency of Treatment Frequency Of Treatment Once a Day Treatment Plan OT Treatment Plan ADL Training,Functional Cognition Training,Functional Mobility,Patient/Family Education,Discharge Planning Discharge Recommendations OT Discharge Recommendations Home with Assistance Transportation Needs at Discharge Private Vehicle
--- NOTE | 2020-02-21 16:29 | PC.NURSE ---
Pt reports 4/10 pain, requests one [place]; Coversite drsg dry and intact with shadow drainage; c/m present to BLLEs with chronic tingling to BL feet; LS clear, O2 GT=654%; 200 output to urinal
[2020-02-21 20:00] VITALS: BP 129/73; PULSE 77; RESP 20; TEMP 36.7
[2020-02-21] MEDS: SIMVASTATIN 20 MG TABLET PO (20:40)
[2020-02-21] MEDS: SENNOSIDES 8.6 MG TABLET 17.2 MG PO (20:40)
[2020-02-21] MEDS: hydrOXYzine pamoate 25 MG CAPSULE PO (20:45)
[2020-02-21] MEDS: TRAZODONE 50 MG TABLET PO (22:29)
[2020-02-22] VITALS: BP 125/65; PULSE 72; RESP 16; TEMP 37.1; O2SAT 96
[2020-02-22 05:00] VITALS: BP 138/71; PULSE 69; RESP 16; TEMP 36.4; O2SAT 97
[2020-02-22] MEDS: HYDROCODONE/ACET 5/325 TABLET 2 TAB PO ×2 (06:30→10:38)
--- NOTE | 2020-02-22 06:48 | PM.PNPO.1 ---
Subjective Subjective Date Patient Seen: 02/22/20 Time Patient Seen: 06:48 Interval history: He is doing well. Independent with ambulation. Exam Vital Signs (past 8 hours): - 02/22/20 00:00 02/22/20 05:00 Temperature 98.7 F 97.5 F L Pulse Rate 72 69 Respiratory Rate 16 16 Blood Pressure 125/65 138/71 Pulse Oximetry 96 97 Oxygen Delivery Method Room Air Oxygen Flow Rate 0 Const Orientation: alert and oriented x3 Back/Spine/Pelvis Other: Mild drainage on dressing. 5/5 motor both lower extremities Objective Labs Result Diagrams: 02/21/20 05:47 Labs: Laboratory Results - last 24 hr 02/21/20 05:47 Hgb 11.9 L Hct 34.2 L Assessment & Plan Post-op Postoperative Procedures: Procedures Operation Date: 02/20/20 07:45 Actual Procedures Side Surgeon p L2-5 laminectomies Ryder Velázquez MD he is doing well. Discharged home today. Quality VTE Deep Vein Thrombosis/Pulmonary Embolism Present on Admission: No
[2020-02-22 08:00] VITALS: BP 144/84; PULSE 73; RESP 16; TEMP 36.6; O2SAT 97
--- NOTE | 2020-02-22 09:40 | PT.IPTN ---
Current Diagnoses Spinal stenosis, lumbar region with neurogenic claudication (02/21/20) Other intervertebral disc degeneration, lumbar region (02/21/20) Surgery Performed Operation Date: 02/20/20 07:45 Actual Procedures p L2-5 laminectomies - Ryder Vleázquez MD Physical Therapy Treatment Note M2 PT-IP Current Condition Start: 02/20/20 13:27 Freq: NEEDED Status: Discharge Protocol: Document 02/20/20 14:31 AW (Rec: 02/20/20 14:51 AW [id number]) Physical Therapy Current Condition Current Condition Evaluation Date 02/20/20 Treatment Diagnosis s/p L2-3 L3-4 L4-5 laminectomies; difficulty in walking Onset Date 02/20/20 Precautions Lumbar Precautions Log Roll,No Twisting,Limit Bending,Lifting Restriction of 10 lbs,Gait Belt above Incisional Area Weight Bearing Status Weight Bearing Status Full Weight Bearing M3 PT-IP Subjective Start: 02/20/20 13:27 Freq: NEEDED Status: Discharge Protocol: Document 02/22/20 09:10 SP (Rec: 02/22/20 13:49 SP [id number]) Subjective Physical Therapy Visit Type Type Treatment Note Visit Start Time 09:10 Visit Stop Time 09:40 Total Visit Minutes 30 Number of C++ PROFESSOR Visits 3 Physical Therapy Visit Comments Patient Comments Pt willing to work with therapy. Patient Goals Discharge home with sister to assist him and wanting to work with out patient PT. Therapy Pain Assessment Pain Present Pain Present Denied Pain M4 PT-IP Mobility and Gait Start: 02/20/20 13:27 Freq: NEEDED Status: Discharge Protocol: Document 02/22/20 09:10 SP (Rec: 02/22/20 13:49 SP [id number]) PT-Transfer Assessment Sit to and From Stand Sit to and from Stand Standby Assistance,Use of Upper Extremities Equipment Transfer Assistive Device Gait Belt,Straight Cane Orthotic/Prosthetic Devices or Brace: No Transfers Transfer Destination Chair Transfer Technique pt ambulated using SPC Transfer Ability Level of Assist Standby Assistance Comments Mobility Comments Pt was sitting upright in chair when arrived. Sit to stand using BUE pushing from chair initially then was able to complete UE rested on lap x5 reps, good spinal alignment . Instructed stationary balance activities no AD: feet together, stagger 2 inches apart with head turns and EO/ EC little unsteady with self recovery arms out to side up to 10 sec each position, pt stated has done this at home previous to surgery at counter and would like to get back to himself when more stable and wanting to go to outpatient PT to progress when medically cleared. C++ PROFESSOR adjusted personal SPC one notch taller with improved gait support for balance. Pt was able to ambulate further distance using SPC SBA, stable 3 laps around nursing station 636 ft no LOB and included occasional head turns with slowing of speed for balance safety demonstrated, no LOB. Pt was sitting in chair with call light and all needs in reach when returned to room. C++ PROFESSOR discussed with nurse patient's progress during tx today and recommending able to go home with sister for assist and outpatient PT to progress strength, balance to improved functional mobility toward personal goals when medically cleared. Gait Assessment Gait Gait Assistance Required: Standby Assistance Distance (Feet) 636 Able to Maintain Weight Bearing Status Yes During Gait Assistive Devices Assistive Device Gait Belt,Straight Cane Orthotic/Prosthetic Devices or Brace: No Gait Deviations General Gait Pattern Antalgic,Wide Based Gait Factors Limiting Gait Function Factors Limiting Gait Function Decreased Activity Tolerance, Decreased Strength,Poor Balance Comments Gait Comments See mobility comments. Stair Climbing Assessment Comments Stair Climbing Comments Did not assess today, does fine SBA using 1 HR and SPC previous treatments. PT-Balance Assessment Sitting Balance and Reactions Static Sitting Balance Ability Normal Dynamic Sitting Balance Ability Normal Standing Balance and Reactions Static Standing Balance Ability Fair Device Used no AD stationary Fair, dynamic with SPC fair. Functional Assessments Other Functional Tests Performed See mobility comments. M5 PT-IP Objective Assessments Start: 02/20/20 13:27 Freq: NEEDED Status: Discharge Protocol: Document 02/20/20 14:31 AW (Rec: 02/20/20 14:51 AW [id number]) Orientation Orientation/Cognition Level of Alertness Alert Orientation Name,Day of Week,Place, Situation Language Function Ability No Deficits Noted Safety Awareness Understands Safety Issues Memory Description No Deficits Noted Gross Range of Motion Lower Extremity ROM Assessment Within Functional Limits Strength Lower Extremity Strength Assessment Bilaterally Impaired Comments Strength Comments Grossly 4/5 except B knees 4-/ 5 Coordination Assessment Gross Coordination Gross Coordination WNL Sensation Assessment Sensation Gross Sensation Right LE Impaired,Left LE Impaired Comments Sensation Comments Pt reports chronic paresthesias of anterolateral thighs and medial shins. On evaluation, pt noted numbess in toes bilaterally. Muscle Tone Muscle Tone WNL Yes M6 PT-IP Treatment Start: 02/20/20 13:27 Freq: NEEDED Status: Discharge Protocol: Document 02/22/20 09:10 SP (Rec: 02/22/20 13:49 SP [id number]) Physical Therapy Treatment Other Treatments Other Treatment Performed 5 sit to stands with hands on lap from chair sBA, see mobility comments. M7 PT-IP Assessment and Plan Start: 02/20/20 13:27 Freq: NEEDED Status: Discharge Protocol: Document 02/22/20 09:10 SP (Rec: 02/22/20 13:49 SP [id number]) PT Summary Assessment and Plan Potential Rehabilitation Potential Good Status of Condition at Evaluation Evolving Summary Impairments Pain,Strength,Balance, Sensation,Bed Mobility, Transfers,Gait,Activity Tolerance Assessment Summary See mobility comments. Goals Bed Mobility Goal Independent Transfer Goal Standby Assistance,Cane Gait Goal Standby Assistance,Cane Gait Distance 200 Other Goals - up/down 7 stairs with L rail ascending SBA - up/down 7 stairs with SPC SBA- 02/22/20 completed SBA previous treatments. Days to Meet Goals 2 Frequency of Treatment Frequency Of Treatment Twice a Day Treatment Plan Physical Therapy Treatment Plan Bed Mobility Training,Transfer Training,Gait Training, Therapeutic Exercise,Balance Retraining,Post Op Education, Discharge Planning,Hot or Cold Pack Other Recommendations and Next Treatment progress gait distance use of Focus SPC; static and dynamic balance activities with/ without use of SPC. Recommendations To Nursing Amount of Assist Needed Standby Assistance Discharge Recommendations PT Discharge Recommendations Home with Assistance, Outpatient PT Transportation Needs at Discharge Private Vehicle
[2020-02-22] MEDS: DOCUSATE 100 MG CAPSULE PO (09:48)
[2020-02-22] MEDS: AMLODIPINE 5 MG TABLET PO (09:48)
[2020-02-22] MEDS: BACLOFEN 10 MG TABLET PO (09:48)
[2020-02-22] MEDS: TAMSULOSIN 0.4 MG CAPSULE PO (09:49)
[2020-02-22] MEDS: SODIUM CHLORIDE 0.9% FLUSH 10 ML IV (09:49)
[2020-02-22] MEDS: GABAPENTIN 300 MG CAPSULE PO (09:49)
[2020-02-22] MEDS: PANTOPRAZOLE 20 MG TABLET PO (09:49)
[2020-02-22] MEDS: LOSARTAN 25 MG TABLET PO (09:49)
--- NOTE | 2020-02-22 10:45 | PC.NURSE ---
Addendum entered by Leticia Hoffmann R.N. 02/22/20 13:15: Discharge summary packet reviewed with pt around 1250. All questions answered. Pt had no further voiced concerns. Extra dressing supplies given to pt so he can change his back dressing on Wednesday per 's instructions. pt left unit with all belongings, his sister arrived at hospital entrance to drive pt home. Pt left unit at 1314 via wheelchair in no distress with [employer] escort. Original Note: Day SHift- Pt given back his wallet from unit safe with all contents at 1043.. Pt's sister is coming to molded goods spot picker pt for discharge after lunch.
--- NOTE | 2020-02-22 11:43 | CM.DPC ---
DCP: continued: case received, d/c order noted, discussed in Team Rounds. Pt has been cleared for the home setting by therapy team and his sister will be picking him up shortly. Orthopedic followup as per his preop plan.
--- NOTE | 2020-02-22 11:45 | OT.IP.TRT ---
Current Diagnoses Spinal stenosis, lumbar region with neurogenic claudication (02/21/20) Other intervertebral disc degeneration, lumbar region (02/21/20) Surgery Performed Operation Date: 02/20/20 07:45 Actual Procedures p L2-5 laminectomies - Ryder Velázquez MD Occupational Therapy Treatment Note M2 OT-IP Current Condition Start: 02/20/20 16:09 Freq: Status: Active Protocol: Document 02/20/20 16:09 [facility] (Rec: 02/20/20 16:28 [facility] [id number]) Occupational Therapy Current Condition Current Condition Evaluation Date 02/20/20 Treatment Diagnosis Lumbar stenosis with neurological claudication s/p L2-5 Laminectomy Diagnosis Onset Date 02/20/20 Post Operative Precautions Lumbar Precautions Log Roll,No Twisting,Limit Bending,Lifting Restriction of 10 lbs,Gait Belt above Incisional Area Weight Bearing Status Weight Bearing Status Weight Bear as Tolerated M3 OT- IP Subjective and Pain Start: 02/20/20 16:09 Freq: Status: Active Protocol: Document 02/22/20 11:34 [facility] (Rec: 02/22/20 11:45 [facility] [id number]) OT- Subjective Occupational Therapy Visit Type Type Treatment Note Visit Start Time 10:04 Visit Stop Time 10:18 Total Visit Minutes 14 Occupational Therapy Visit Comments Patient Comments Pt wanting to get dressed and nursing present to change on his bandage. Patient/Caregiver Goals To go home. OT Pain Assessment Pain When Pain Assessed At Rest Pain Present Pain Present Denied Pain M4 OT- IP ADL's Start: 02/20/20 16:09 Freq: Status: Active Protocol: Document 02/22/20 11:34 [facility] (Rec: 02/22/20 11:45 [facility] [id number]) OT ADL-Dressing General Eval Upper Body Dressing Ability Independent Lower Body Dressing Ability Independent Comments OT Dressing Comments Pt able to remember to sit down in order to johnny his pants today. OT ADL-Toileting General Evaluation Toileting Ability Independent OT ADL-Bathing Comments OT Bathing Comments Pt to obtain a mirror so that he can look at his dressing daily in addition has a friend that will stop by to check on him daily. M5 OT- IP IADL's Start: 02/20/20 16:09 Freq: Status: Active Protocol: Document 02/20/20 16:09 [facility] (Rec: 02/20/20 16:28 [facility] [id number]) OT-Instrumental Activities of Daily Living Home Safety Awareness Awareness of Need for Assistance at Home Good Awareness Ability to Problem Solve Emergency Able to Problem Solve Situations Home Safety Comments Pt a bit groggy and initially pt's sister to assist for IADL needs and double check for meds and finances. M6 OT- IP Functional Cognition Start: 02/20/20 16:09 Freq: Status: Active Protocol: Document 02/22/20 11:34 [facility] (Rec: 02/22/20 11:45 [facility] [id number]) Cognitive Factors Limiting Selfcare Function Cognitive Comments Cognitive Assessment Comments Pt baseline and doing better today to remember to slow down and incorporate his back precautions. Suggested to pt to write a list of things/activities that he would like to resume so that he can go over and clear it from the surgeon. M7 OT- IP Mobility and Balance Start: 02/20/20 16:09 Freq: Status: Active Protocol: Document 02/22/20 11:34 [facility] (Rec: 02/22/20 11:45 [facility] [id number]) OT-Transfer Assessment Sit to and From Stand Sit to and from Stand Independent Transfers Transfer Ability Independent Comments Mobility Comments Educated at this time if he drops on the floor to use the sub acute care nurse if in is small and light weight or just wait for someone to help pick it up at this time. Pt at this time not ready to do golfer's stretch to draft roller picker items from the floor. Pt states will use his hurry cane as well or cane with strap so prevent from dropping his cane. OT- Balance Assessment Sitting Balance and Reactions Static Sitting Balance Ability Normal Dynamic Sitting Balance Ability Normal Standing Balance and Reactions Static Standing Balance Ability Good Dynamic Standing Balance Ability Fair M8 OT- IP Objective Assessments Start: 02/20/20 16:09 Freq: Status: Active Protocol: Document 02/20/20 16:09 [facility] (Rec: 02/20/20 16:28 [facility] [id number]) OT Gross Range of Motion Upper Extremity Range of Motion Assessment Within Functional Limits OT Strength Upper Extremity Strength Assessment Within Functional Limits OT-Muscle Tone Assessment Muscle Tone WNL Yes M9 OT- IP Assessment and Plan Start: 02/20/20 16:09 Freq: Status: Active Protocol: Document 02/22/20 11:34 [facility] (Rec: 02/22/20 11:45 [facility] [id number]) OT Summary Assessment and Plan Potential Rehabilitation Potential Excellent Analytic Complexity at Evaluation Low Summary Assessment Summary Pt going home today. Able to finalize OT suggestions of having his friend look at his back dressing daily or get a mirror so he can look at his back dressing in the bath room mirror, have friend help to place items at convenient levels so that he will not have to bend, and come up with a list of activities he would like to resume for his next appointment with his physician so able to know specifically to know what activities he will still be limited from doing. Goals Grooming Goal Independent Dressing Goal Independent Toileting Goal Independent Bathing Goal Independent Toilet Transfer Goal Independent Shower Transfer Goal Independent Frequency of Treatment Frequency Of Treatment Once a Day Discharge Recommendations OT Discharge Recommendations Home with Assistance Transportation Needs at Discharge Private Vehicle
== END 2020-02-22 13:14 | disposition home or self-care (01) ==
LOC: OR 13:36 → AC 13:36
PROVIDERS: Admitting Provider Orthopaedic Surgery; PCP Physician Assistant Medical; Referring Provider Orthopaedic Surgery; Visit Provider Orthopaedic Surgery
PROC: (CPT 63047; principal; 2020-02-20 07:45)
DX: M48.062 Spinal stenosis, lumbar region with neurogenic claudication (principal); M51.36 Other intervertebral disc degeneration, lumbar region; I10 Essential (primary) hypertension; E78.5 Hyperlipidemia, unspecified; E78.00 Pure hypercholesterolemia, unspecified
CPT/HCPCS: 63047; 63048 ×2; 36415; 72100; 76000; 85014; 85018; 97112; 97116; 97161; 97165; 97530; 97535; G0378; J0131; J0690; J1100; J1885; J2405; J3010